=== PATIENT | female | born 1980 | race Caucasian/White ===

== ENCOUNTER 2022-01-06 14:47 | Outpatient (CLI) | payer OTHER | END 2022-01-06 14:48 | disposition home or self-care (01) | LOC: LAB 14:47 | PROVIDERS: ATTEND Internal Medicine Pulmonary Disease | DX: J30.1 Allergic rhinitis due to pollen (principal); K21.9 Gastro-esophageal reflux disease without esophagitis; R05.9 Cough, unspecified; J45.20 Mild intermittent asthma, uncomplicated ==

== ENCOUNTER 2023-09-10 13:47 | Outpatient (CLI) | payer OTHER | END 2023-09-10 13:54 | disposition home or self-care (01) | LOC: MAMO-SONO 13:47 | DX: N63.0 Unspecified lump in unspecified breast (principal); N63.10 Unspecified lump in the right breast, unspecified quadrant; N63.20 Unspecified lump in the left breast, unspecified quadrant; N64.59 Other signs and symptoms in breast; Z12.31 Encounter for screening mammogram for malignant neoplasm of breast ==

== ENCOUNTER 2023-11-16 12:23 | Outpatient (CLI) | payer OTHER ==
[2023-11-16 14:01] LABS: HEMATOCRIT 37.3 % (36.0-45.00); MEAN CORPUSCULAR HEMOGLOBIN 31.8 pg (27.00-32.0); MEAN CORPUSCULAR HGB CONC 34.9 g/dl (32.0-36.0); PLATELET COUNT 340 K/uL (150-450)
[2023-11-16 14:37] LABS: BILIRUBIN TOTAL 0.34 mg/dL (0.3-1.2); CHOL HDL RATIO 5.3 (0-5.0); CREATININE SERUM 0.61 mg/dL (0.55-1.02); GFR 108.09; GLOBULINA 3.1 G/DL (2.4-3.5); POTASSIUM 4.29 mEq/L (3.5-5.1); T4 FREE 0.78 NG/ML (0.76-1.46); TOTAL PROTEIN 7.1 gm/dL (6.4-8.2); TSH 1.19 uIU/mL (0.358-3.74)
[2023-11-16 14:49] LABS: FOLIC ACID > 20.00 ng/ml (4.78-20); VITAMIN D3 25 HYDROXY 31.33 ng/ml (30-120)
[2023-11-16 14:52] LABS: PH,URINE 7.5 (5.0-8.0); URINE APPEARANCE Clear; URINE BILIRRUBIN Negative (NEGATIVE); URINE BLOOD Negative; URINE COLOR Yellow; URINE GLUCOSE Negative (NEGATIVE); URINE LEUKOCYTE Trace; URINE NITRATE Negative; URINE PROTEIN Negative (NEGATIVE); URINE UROBILINOGEN 0.2 E.U./dl
[2023-11-16 14:53] LABS: URINE BACTERIA 157.4 uL (0.0-1933); URINE EPITHELIAL CELLS 7.4 uL (0.0-38.8); URINE WBC 14.2 uL (0.0-23.2)
== END 2023-11-16 12:27 | disposition home or self-care (01) ==
LOC: LAB 12:23
PROVIDERS: ATTEND General Practice
DX: E03.9 Hypothyroidism, unspecified (principal); E55.9 Vitamin D deficiency, unspecified; E78.00 Pure hypercholesterolemia, unspecified; R80.9 Proteinuria, unspecified; R39.0 Extravasation of urine; R73.9 Hyperglycemia, unspecified

== ENCOUNTER 2024-02-18 08:10 | Outpatient (CLI) | payer OTHER ==
[2024-02-18 09:39] LABS: URINE APPEARANCE Turbid; URINE BILIRRUBIN Negative (NEGATIVE); URINE BLOOD Negative; URINE COLOR Dark Yellow; URINE GLUCOSE Negative (NEGATIVE); URINE LEUKOCYTE Trace; URINE NITRATE Negative; URINE PROTEIN Negative (NEGATIVE)
[2024-02-18 09:45] LABS: URINE BACTERIA 658.9 uL (0.0-1933); URINE EPITHELIAL CELLS 26.7 uL (0.0-38.8); URINE RBC 10.6 uL (0.0-20.8); URINE WBC 32.7 uL (0.0-23.2)
[2024-02-18 09:47] LABS: HEMATOCRIT 38.6 % (36.0-45.00); HEMOGLOBIN 13.4 g/dL (12.0-15.00); MEAN CELL VOLUME 90.4 fL (80.00-100.00); MEAN CORPUSCULAR HEMOGLOBIN 31.4 pg (27.00-32.0); MEAN CORPUSCULAR HGB CONC 34.7 g/dl (32.0-36.0); PLATELET COUNT 342 K/uL (150-450); RED BLOOD COUNT 4.27 M/uL (4.00-6.00)
[2024-02-18 11:27] LABS: ALBUMIN 4.4 gm/dL (3.4-5.0); BILIRUBIN TOTAL 0.48 mg/dL (0.3-1.2); CALCIUM 9.4 mg/dL (8.5-10.1); CHOL HDL RATIO 2.8 (0-5.0); CREATININE SERUM 0.73 mg/dL (0.55-1.02); GFR 87.85; GLOBULINA 2.9 G/DL (2.4-3.5); POTASSIUM 4.28 mEq/L (3.5-5.1); T4 FREE 0.94 NG/ML (0.76-1.46); TOTAL PROTEIN 7.3 gm/dL (6.4-8.2); TSH 0.807 uIU/mL (0.358-3.74)
[2024-02-18 13:01] LABS: FOLIC ACID > 20.00 ng/ml (4.78-20); VITAMIN D3 25 HYDROXY 41.36 ng/ml (30-120)
== END 2024-02-18 08:11 | disposition home or self-care (01) ==
LOC: LAB 08:10
PROVIDERS: ATTEND General Practice
DX: D64.89 Other specified anemias (principal); E11.9 Type 2 diabetes mellitus without complications; E78.2 Mixed hyperlipidemia; E80.1 Porphyria cutanea tarda; E03.9 Hypothyroidism, unspecified; N39.0 Urinary tract infection, site not specified; E55.9 Vitamin D deficiency, unspecified; E53.9 Vitamin B deficiency, unspecified

== ENCOUNTER 2024-05-13 15:18 | Outpatient (CLI) | payer OTHER ==
[~2024-05-13 15:18] MED LIST: CRESTOR10 MG; LEVSIN/SL0.125 MG SL; MOUNJARO7.5 MG/0.5; TAMS0.4C PO
== END 2024-05-13 15:20 | disposition home or self-care (01) ==
LOC: LAB 15:18
PROVIDERS: ATTEND Urology
DX: N20.0 Calculus of kidney (principal); N39.0 Urinary tract infection, site not specified

== ENCOUNTER 2024-05-20 15:21 | Outpatient (CLI) | payer OTHER | END 2024-05-20 15:28 | disposition home or self-care (01) | LOC: RAD 15:21 | PROVIDERS: ATTEND Urology | DX: N20.0 Calculus of kidney (principal) ==

== ENCOUNTER 2024-08-13 08:38 | Outpatient (CLI) | payer OTHER ==
[2024-08-13 09:11] LABS: HEMATOCRIT 37.3 % (36.0-45.00); HEMOGLOBIN 13.1 g/dL (12.0-15.00); MEAN CELL VOLUME 89.7 fL (80.00-100.00); MEAN CORPUSCULAR HEMOGLOBIN 31.6 pg (27.00-32.0); MEAN CORPUSCULAR HGB CONC 35.2 g/dl (32.0-36.0); PLATELET COUNT 365 K/uL (150-450); RED BLOOD COUNT 4.16 M/uL (4.00-6.00); RED CELL DISTRIBUTION WIDTH 12.6 % (11.5-14.5)
[2024-08-13 09:36] LABS: URINE APPEARANCE Cloudy; URINE BILIRRUBIN Negative (NEGATIVE); URINE BLOOD Negative; URINE COLOR Yellow; URINE GLUCOSE Negative (NEGATIVE); URINE KETONE Negative (NEGATIVE); URINE LEUKOCYTE Negative; URINE NITRATE Negative; URINE PROTEIN Negative (NEGATIVE); URINE UROBILINOGEN 0.2 E.U./dl
[2024-08-13 09:41] LABS: URINE BACTERIA 1205.7 uL (0.0-1933); URINE EPITHELIAL CELLS 37.8 uL (0.0-38.8); URINE RBC 54.6 uL (0.0-20.8); URINE WBC 43.4 uL (0.0-23.2)
[2024-08-13 10:19] LABS: BILIRUBIN TOTAL 0.34 mg/dL (0.3-1.2); CALCIUM 8.6 mg/dL (8.5-10.1); CHOL HDL RATIO 4.7 (0-5.0); CREATININE SERUM 0.65 mg/dL (0.55-1.02); GFR 99.96; GLOBULINA 3.1 G/DL (2.4-3.5); POTASSIUM 4.36 mEq/L (3.5-5.1); T4 FREE 0.88 NG/ML (0.76-1.46); TOTAL PROTEIN 7.1 gm/dL (6.4-8.2); TSH 1.28 uIU/mL (0.358-3.74)
[2024-08-13 11:58] LABS: FOLIC ACID 8.87 ng/ml (4.78-20); VITAMIN D3 25 HYDROXY 27.78 ng/ml (30-120)
== END 2024-08-13 08:42 | disposition home or self-care (01) ==
LOC: LAB 08:38
PROVIDERS: ATTEND General Practice
DX: D64.9 Anemia, unspecified (principal); E11.69 Type 2 diabetes mellitus with other specified complication; E78.2 Mixed hyperlipidemia; R73.09 Other abnormal glucose; R80.1 Persistent proteinuria, unspecified; E03.9 Hypothyroidism, unspecified; N39.0 Urinary tract infection, site not specified; E55.9 Vitamin D deficiency, unspecified; E50.9 Vitamin A deficiency, unspecified

== ENCOUNTER 2024-09-11 07:29 | Outpatient (CLI) | payer OTHER | END 2024-09-11 07:33 | disposition home or self-care (01) | LOC: MAMO-SONO 07:29 | DX: N62 Hypertrophy of breast (principal) ==

== ENCOUNTER → 2024-12-02 08:10 | Outpatient (CLI) | payer OTHER ==
[2024-12-02 08:43] LABS: URINE APPEARANCE Clear; URINE BILIRRUBIN Negative (NEGATIVE); URINE BLOOD Negative; URINE COLOR Yellow; URINE GLUCOSE Negative (NEGATIVE); URINE KETONE Negative (NEGATIVE); URINE LEUKOCYTE Negative; URINE NITRATE Negative; URINE PROTEIN Negative (NEGATIVE)
[2024-12-02 08:45] LABS: URINE BACTERIA 2657.2 uL (0.0-1933); URINE RBC 51.9 uL (0.0-20.8); URINE WBC 30.2 uL (0.0-23.2)
[2024-12-02 08:46] LABS: URINE CAST 0.14 uL (0.0-1.40)
[2024-12-02 08:48] LABS: HEMATOCRIT 37.6 % (36.0-45.00); HEMOGLOBIN 13.2 g/dL (12.0-15.00); MEAN CELL VOLUME 90.6 fL (80.00-100.00); MEAN CORPUSCULAR HEMOGLOBIN 31.9 pg (27.00-32.0); MEAN CORPUSCULAR HGB CONC 35.2 g/dl (32.0-36.0); PLATELET COUNT 275 K/uL (150-450); RED BLOOD COUNT 4.15 M/uL (4.00-6.00); RED CELL DISTRIBUTION WIDTH 12.9 % (11.5-14.5)
[2024-12-02 09:28] LABS: ALBUMIN 4.3 gm/dL (3.4-5.0); BILIRUBIN TOTAL 0.48 mg/dL (0.3-1.2); CALCIUM 9.4 mg/dL (8.5-10.1); CHOL HDL RATIO 2.1 (0-5.0); CREATININE SERUM 0.61 mg/dL (0.55-1.02); GFR 107.56; GLOBULINA 3.1 G/DL (2.4-3.5); POTASSIUM 3.88 mEq/L (3.5-5.1); T4 FREE 1.01 NG/ML (0.76-1.46); TOTAL PROTEIN 7.4 gm/dL (6.4-8.2); TSH 0.934 uIU/mL (0.358-3.74)
== END | disposition home or self-care (01) ==
LOC: LAB 08:10
PROVIDERS: ATTEND General Practice
DX: E78.2 Mixed hyperlipidemia (principal); R73.9 Hyperglycemia, unspecified; E03.9 Hypothyroidism, unspecified; E55.9 Vitamin D deficiency, unspecified; D64.89 Other specified anemias; E11.9 Type 2 diabetes mellitus without complications; N39.0 Urinary tract infection, site not specified; R80.1 Persistent proteinuria, unspecified

== ENCOUNTER 2025-04-27 09:36 | Emergency (ER) | payer OTHER ==
[~2025-04-27] VITALS: Ht 154.9 cm; Wt 61.2 kg
[2025-04-27] MEDS ORDERED: ZOLOFT25 MG PO (09:57)
[2025-04-27] MEDS ORDERED: ZYRTEC10 MG PO (09:58)
[2025-04-27 12:15] LABS: BASO % 0.6 % (0.1-1.2); EOS # 0.23 (0.04-0.54); EOS % 3.4 % (0.7-7.0); HEMATOCRIT 37.1 % (34.1-44.9); HEMOGLOBIN 12.9 g/dL (11.2-15.7); LYMPH # 1.47 (1.18-3.74); LYMPH % 21.9 % (19.3-53.1); MEAN CORPUSCULAR HEMOGLOBIN 31.1 pg (25.6-32.2); MONO # 0.55 (0.24-0.82); MONO % 8.2 % (4.7-12.5); NEUT % 65.5 % (34.0-71.1); PLATELET COUNT 347 K/uL (163-369); RED BLOOD COUNT 4.15 M/uL (3.93-5.22); RED CELL DISTRIBUTION WIDTH 12.9 % (11.6-14.4)
[2025-04-27 12:42] LABS: ALBUMIN 4.1 gm/dL (3.4-5.0); BILIRUBIN TOTAL 0.42 mg/dL (0.3-1.2); CALCIUM 9.4 mg/dL (8.5-10.1); CREATININE SERUM 0.77 mg/dL (0.55-1.02); GFR 82.21; GLOBULINA 3.3 G/DL (2.4-3.5); POTASSIUM 3.8 mEq/L (3.5-5.1); TOTAL PROTEIN 7.4 gm/dL (6.4-8.2)
[2025-04-27] MEDS ORDERED: HYDROXYZINE PAM50 MG PO (15:28)
== END 2025-04-27 15:38 | disposition home or self-care (01) ==
LOC: ER 09:36
PROVIDERS: Preventive Medicine Public Health & General Preventive Medicine
DX: F41.9 Anxiety disorder, unspecified (principal); R07.89 Other chest pain; I10 Essential (primary) hypertension